=== PATIENT | male | born 1995 | race Caucasian/White ===

== ENCOUNTER 2017-03-06 13:10 | Emergency (ER) | payer OTHER ==
[2017-03-06 13:22] VITALS: BP 139/87; PULSE 64; TEMP 97.7; BMI 18.2
--- NOTE | 2017-03-06 13:58 | PDOC ---
History of Present Illness - History of Present Illness Initial Comments: 03/06/17 13:51 21 yo M with no significant pmh who presents with acute back pain. Patient reports new onset upper thoracic back pain following hyperflexion while leaning over to pick something off floor monday evening (03/05). He now reports intermittent dull achy back thoracic back pain aggravated with rotational movements and leaning over. Denies OTC analgesia. No other asx. complaints. Denies trauma. Denies numbness/tingling of exts., weakness, LOC, urinary or bowel complaints, N/V, fevers/chills. Denies OTC analgesia. No h/o back trauma. <Kofi Lo - Last Filed: 03/06/17 14:02> <Claudia Ahumada - Last Filed: 03/06/17 14:37> - General Chief Complaint: Pain Stated Complaint: BACK PAIN Time Seen by Provider: 03/06/17 13:26 Past History - Past Medical History COPD: No Other medical history: PT DENEIS - Surgical History Appendectomy: Yes - Immunization History Immunization Up to Date: Yes - Suicide/Smoking/Psychosocial Hx Smoking History: Never smoked Have you smoked in the past 12 months: No Hx Alcohol Use: Yes (OCCASIONAL) Drug/Substance Use Hx: No Substance Use Type: None <Kofi Lo - Last Filed: 03/06/17 14:02> <Claudia Ahumada - Last Filed: 03/06/17 14:37> - Past Medical History Allergies/Adverse Reactions: Allergies Allergy/AdvReac Type Severity Reaction Status Date / Time piperacillin sodium Allergy Severe Difficulty Verified 03/06/17 13:18 [From Zosyn] Breathing tazobactam sodium Allergy Severe Difficulty Verified 03/06/17 13:18 [From Zosyn] Breathing Home Medications: Ambulatory Orders NK [No Known Home Medication] 03/06/17 Review of Systems - Review of Systems Comments:: 03/06/17 13:58 GENERAL/CONSTITUTIONAL: No fever or chills. No weakness. HEAD, EYES, EARS, NOSE AND THROAT: No change in vision. No ear pain or discharge. No sore throat.- CARDIOVASCULAR: No chest pain or shortness of breath RESPIRATORY: No cough, wheezing, or hemoptysis. GASTROINTESTINAL: No nausea, vomiting, diarrhea or constipation. GENITOURINARY: No dysuria, frequency, or change in urination. MUSCULOSKELETAL: No joint or muscle swelling or pain. No neck or back pain. SKIN: No rash NEUROLOGIC: No headache, vertigo, loss of consciousness, or change in strength/ sensation. ENDOCRINE: No increased thirst. No abnormal weight change HEMATOLOGIC/LYMPHATIC: No anemia, easy bleeding, or history of blood clots. ALLERGIC/IMMUNOLOGIC: No hives or skin allergy. <WallyKofi - Last Filed: 03/06/17 14:02> *Physical Exam - Vital Signs Last Vital Signs Temp Pulse Resp BP Pulse Ox 97.7 F 64 18 139/87 100 03/06/17 13:10 03/06/17 13:10 03/06/17 13:10 03/06/17 13:10 03/06/17 13:10 - Physical Exam Comments: 03/06/17 14:06 GENERAL: Awake, alert, and fully oriented, in no acute distress HEAD: No signs of trauma, normocephalic, atraumatic EYES: PERRLA, EOMI, sclera anicteric, conjunctiva clear ENT: hearing grossly normal, nares patent, oropharynx clear without exudates. Moist mucosa NECK: Normal ROM, supple, no lymphadenopathy, JVD, or masses LUNGS: No distress, speaks full sentences, clear to auscultation bilaterally HEART: Regular rate and rhythm, normal S1 and S2, no murmurs, rubs or gallops, peripheral pulses normal and equal bilaterally. EXTREMITIES : Normal inspection, Normal range of motion, no edema. No clubbing or cyanosis. Back: Non tender to palpation along spine and paraspinal area. No obvious bony deformity. NEUROLOGICAL: Cranial nerves II through XII grossly intact. Normal speech, normal gait, no focal sensorimotor deficits SKIN: Warm, Dry, normal turgor, no rashes or lesions noted. <WallyHarmanKofi - Last Filed: 03/06/17 14:02> - Vital Signs Last Vital Signs Temp Pulse Resp BP Pulse Ox 97.7 F 64 18 139/87 100 03/06/17 13:10 03/06/17 13:10 03/06/17 13:10 03/06/17 13:10 03/06/17 13:10 <Claudia Ahumada - Last Filed: 03/06/17 14:37> Medical Decision Making - Medical Decision Making 03/06/17 14:02 21 yo M with no significant pmh who presents with new onset upper thoracic back pain following hyperflexion while leaning over to pick something off floor Monday evening ( 03/05/17) . He now reports intermittent dull achy back thoracic back pain aggravated with rotational movements and leaning over. No other asx. complaints. Denies trauma. Denies numbness/tingling of exts., weakness, LOC, urinary or bowel complaints, N/V, fevers/chills. No h/o back trauma. Physical exam benign. Pain most likely 2/2 back/thoracic sprain/strain. No evidence of lower back herniation or cauda equina. ED Course: Patient assessed and stable at bedside. Safe for D/c with return precautions and advised to follow up with PCP. <Kofi Lo - Last Filed: 03/06/17 14:02> *DC/Admit/Observation/Transfer - Discharge Dispostion Admit: No - Attestations Physician Attestion: 03/06/17 14:00 I attest to the information provided in this note. <Kofi Lo - Last Filed: 03/06/17 14:02> <Claudia Ahumada - Last Filed: 03/06/17 14:37> Diagnosis at time of Disposition: Thoracic back sprain Qualifiers: Encounter type: initial encounter Qualified Code(s): S23.9XXA - Sprain of unspecified parts of thorax, initial encounter - Discharge Dispostion Disposition: HOME Condition at time of disposition: Good - Patient Instructions Printed Discharge Instructions: DI for Back Strain or Sprain Additional Instructions: Please return to the emergency department if you experience new or worsening concerns or symtpoms. Please follow up with primary care physician in one week if pain persists. Please take ibruprofen and tylenol as needed for back pain.
== END 2017-03-06 14:47 | disposition home or self-care (01) ==
LOC: FER 13:10
DX: S23.9XXA Sprain of unspecified parts of thorax, initial encounter (principal); X58.XXXA Exposure to other specified factors, initial encounter; Y93.89 Activity, other specified; Y92.9 Unspecified place or not applicable
CPT/HCPCS: 99282-25

== ENCOUNTER 2017-09-08 13:32 | Emergency (ER) | payer OTHER ==
[2017-09-08 13:37] VITALS: BP 110/76; PULSE 63; TEMP 97.9
[2017-09-08] MEDS ORDERED: ACETAMINOPHEN 500 MG TABLET (FP) PO ONE (14:22)
[2017-09-08] MEDS ORDERED: METOCLOPRAMIDE HCL INJECTION 10 MG/2 ML VIAL IM ONE (14:22)
[2017-09-08] MEDS ORDERED: ACETAMINOPHEN 500 MG TABLET (FP) ONE (14:26)
--- NOTE | 2017-09-08 14:41 | PDOC ---
History of Present Illness - General Chief Complaint: Migraine Headache Stated Complaint: migraine Time Seen by Provider: 09/08/17 13:38 - History of Present Illness Initial Comments: 09/08/17 14:35 "The patient is a 22M, with PMHx significant for migraines, who presents with headache. Patient states he had a headache yesterday morning after waking up. He describes his headache as frontal, gradual onset, better after sleep. This is consistent with his typical migraine headaches. He also reports associated nausea which he usually experiences with his migraines and states he vomited once. Today he states that he began experiencing another migraine while driving. He took an excedrin which helped significantly. He currently rate his pain 2/10. However, he decided to come to the ER because he was concerned that his migraines were becoming more frequent. He typically gets them once a month. He denies fever or neck pain. Denies thunderclap. Denies worst headache of life. Social Hx: Occasional EtOH. Denies tobacco or illicit drug use. " Past History - Past Medical History Allergies/Adverse Reactions: Allergies Allergy/AdvReac Type Severity Reaction Status Date / Time piperacillin sodium Allergy Severe Difficulty Verified 09/08/17 13:34 [From Zosyn] Breathing tazobactam sodium Allergy Severe Difficulty Verified 09/08/17 13:34 [From Zosyn] Breathing Home Medications: Ambulatory Orders NK [No Known Home Medication] 03/06/17 COPD: No - Surgical History Appendectomy: Yes - Immunization History Immunization Up to Date: Yes - Suicide/Smoking/Psychosocial Hx Smoking History: Never smoked Have you smoked in the past 12 months: No Hx Alcohol Use: Yes Drug/Substance Use Hx: No Substance Use Type: Alcohol Review of Systems - Review of Systems Comments:: 09/08/17 14:37 "GENERAL/CONSTITUTIONAL: No fever or chills. No weakness. HEAD, EYES, EARS, NOSE AND THROAT: No ear pain or discharge. No sore throat. CARDIOVASCULAR: No chest pain or shortness of breath. RESPIRATORY: No cough, wheezing, or hemoptysis. GASTROINTESTINAL: +nausea, no diarrhea or constipation. GENITOURINARY: No dysuria, frequency, or change in urination. MUSCULOSKELETAL: No joint or muscle swelling or pain. No neck or back pain. SKIN: No rash NEUROLOGIC: + headache, no vertigo, loss of consciousness, or change in strength /sensation. ENDOCRINE: No increased thirst. No abnormal weight change. HEMATOLOGIC/LYMPHATIC: No anemia, easy bleeding, or history of blood clots. ALLERGIC/IMMUNOLOGIC: No hives or skin allergy. " *Physical Exam - Vital Signs Last Vital Signs Temp Pulse Resp BP Pulse Ox 97.9 F 63 17 110/76 100 09/08/17 13:33 09/08/17 13:33 09/08/17 13:33 09/08/17 13:33 09/08/17 13:33 - Physical Exam Comments: 09/08/17 14:37 "GENERAL: Awake, alert, and fully oriented, in no acute distress. HEAD: No signs of trauma EYES: PERRLA, EOMI, sclera anicteric, conjunctiva clear ENT: Auricles normal inspection, hearing grossly normal, nares patent, oropharynx clear without exudates. Moist mucosa NECK: Nontender, no stepoffs, Normal ROM, supple, no lymphadenopathy, JVD, or masses LUNGS: Breath sounds equal, clear to auscultation bilaterally. No wheezes, and no crackles HEART: Regular rate and rhythm, normal S1 and S2, no murmurs, rubs or gallops ABDOMEN: Soft, nontender, normoactive bowel sounds. No guarding, no rebound. No masses EXTREMITIES: Normal range of motion, no edema. No clubbing or cyanosis. No cords, erythema, or tenderness NEUROLOGICAL: Cranial nerves II through XII intact. 5/5 strength and sensation in all extremities, Normal speech, normal gait, normal cerebellar function SKIN: Warm, Dry, normal turgor, no rashes or lesions noted. " ED Treatment Course - Medications Given in the ED: ED Medications Discontinued Medications Generic Name Dose Route Start Last Admin Trade Name Freq PRN Reason Stop Dose Admin Acetaminophen 500 mg 09/08/17 14:22 09/08/17 14:30 Tylenol - PO 09/08/17 14:23 500 mg ONCE ONE Administration Metoclopramide HCl 10 mg 09/08/17 14:22 09/08/17 14:30 Reglan Injection - IM 09/08/17 14:23 10 mg ONCE ONE Administration Medical Decision Making - Medical Decision Making 09/08/17 14:38 22 M with typical migraine headache. Pt with non-focal neuro exam, no red flags to suggest SAH/meningitis/other acute intracranial process. - Tylenol - Reglan IM - F/u neurology *DC/Admit/Observation/Transfer Diagnosis at time of Disposition: Migraine headache with aura - Discharge Dispostion Disposition: HOME Condition at time of disposition: Stable - Referrals Referrals: Clive Meehan MD [Staff Physician] - - Patient Instructions Printed Discharge Instructions: DI for Migraine Additional Instructions: You likely have migraine headaches. Follow up with a neurologist to have additional tests done to confirm this diagnosis. If your headaches continue to increase in frequency, you may need to started on a medication regimen to prevent migraines. If you experience worsening headache, vomiting, fevers, neck stiffness, or any other concerning symptoms, return to the ER immediately. Otherwise follow up with a neurologist or your primary doctor within 1 week. - Post Discharge Activity - Attestations Physician Attestion: 09/08/17 14:41 I, Dr. Keith Carpenter MD, attest that this document has been prepared under my direction and personally reviewed by me in its entirety. I further attest, that it accurately reflects all work, treatment, procedures and medical decision -making performed by me.
== END 2017-09-08 14:55 | disposition home or self-care (01) ==
LOC: FER 13:32
PROC: 3E023GC Introduction of Other Therapeutic Substance into Muscle, Percutaneous Approach (ICD-10-PCS; principal; 2017-09-08)
DX: G43.109 Migraine with aura, not intractable, without status migrainosus (principal)
CPT/HCPCS: 96372; 99281-25

== ENCOUNTER 2017-11-08 09:37 | Emergency (ER) | payer OTHER ==
[2017-11-08 09:47] VITALS: BP 102/59; PULSE 85; TEMP 98.7; BMI 19.5
--- NOTE | 2017-11-08 09:54 | PDOC ---
History of Present Illness - General Chief Complaint: Sore Throat Stated Complaint: SORETHROAT Time Seen by Provider: 11/08/17 09:53 History Source: Patient Exam Limitations: No Limitations - History of Present Illness Initial Comments: 11/08/17 09:54 Pasquale is a 22 yo M with a h/o Migraines who presents to the ER with a concern for Strep throat He has had throat pain for the past week Yesterday he noticed that his throat pain worsened HE believes that he had a fever last night No drooling No voice changes Pt is able to tolerate po/secretions No ill contacts at school Pt denies oral sex/STD Pt denies h/o Spink or contact with mono No arthropod bites No recent travel PMH: Migraine PSH: Appendectomy Meds: Denies ALL: Zosyn Social: Social Etoh, Marijuanna occasionally, Tobacco occasionally FH: Denies GENERAL/CONSTITUTIONAL: Yes: subjective fever No: chills, weakness, loss of appetite. HEAD, EYES, EARS, NOSE AND THROAT: Yes: throat pain No: change in vision, ear pain, discharge CARDIOVASCULAR: No: chest pain, lightheadedness, palpitations, syncope RESPIRATORY: No: cough, shortness of breath, wheezing GASTROINTESTINAL: No: nausea, vomiting, diarrhea, abdominal pain GENITOURINARY: No: dysuria, hematuria, frequency, urgency MUSCULOSKELETAL: No: back pain, neck pain, joint pain SKIN: No: rash NEUROLOGIC: Yes: headache PE: GENERAL: The patient is in no acute distress. HEAD: Normal . EYES: PERRLA, EOMI, sclera anicteric, conjunctiva clear. ENT: Ears normal, nares patent, oropharynx clear without exudates. Moist mucous membranes. Uvula midline, no tonsillar fullness Pharyngeal erythema, no exudate NECK: Normal range of motion, supple (+) scattered lymph nodes, no nuchal rigidity LUNGS: Breath sounds equal, clear to auscultation bilaterally. No wheezes, and no crackles. HEART:Regular rate and rhythm, normal S1 and S2 without murmur, rub or gallop. ABDOMEN: Soft, nontender, normoactive bowel sounds. EXTREMITIES: Normal range of motion NEUROLOGICAL: Cranial nerves II through XII grossly intact. Normal speech. No focal neurological deficits. MUSCULOSKELETAL: Back non-tender to palpation, no CVA tenderness SKIN: Warm, Dry, normal turgor, no rashes or lesions noted. 11/08/17 10:12 Past History - Past Medical History Allergies/Adverse Reactions: Allergies Allergy/AdvReac Type Severity Reaction Status Date / Time piperacillin sodium Allergy Severe Difficulty Verified 11/08/17 09:37 [From Zosyn] Breathing tazobactam sodium Allergy Severe Difficulty Verified 09/08/17 13:34 [From Zosyn] Breathing Home Medications: Ambulatory Orders Azithromycin [Zithromax 250mg Tablets -] 250 mg PO UTDICT #6 tab 11/08/17 COPD: No - Surgical History Appendectomy: Yes - Immunization History Immunization Up to Date: Yes - Suicide/Smoking/Psychosocial Hx Smoking History: Current some day smoker Have you smoked in the past 12 months: Yes Number of Cigarettes Smoked Daily: 1 Information on smoking cessation initiated: Yes 'Breaking Loose' booklet given: 11/08/17 Hx Alcohol Use: Yes (SOCIAL) Drug/Substance Use Hx: Yes (MARIJUANA) Substance Use Type: Alcohol, Marijuana *Physical Exam - Vital Signs Last Vital Signs Temp Pulse Resp BP Pulse Ox 98.7 F 85 20 102/59 98 11/08/17 09:37 11/08/17 09:37 11/08/17 09:37 11/08/17 09:37 11/08/17 09:37 Medical Decision Making - Medical Decision Making 11/08/17 10:16 22 yo M presenting to the ER with a complaint of throat pain DD: Viral vs bacterial pharyngitis, mono possible though less likely given no lymphadenopathy Will give Motrin Decardon Rapid strep Consider abx even if strep test negative Azithromycin Follow up culture Discharge to home *DC/Admit/Observation/Transfer Diagnosis at time of Disposition: Pharyngitis Qualifiers: Pharyngitis/tonsillitis etiology: unspecified etiology Qualified Code(s): J02.9 - Acute pharyngitis, unspecified - Discharge Dispostion Disposition: HOME Condition at time of disposition: Stable Decision to Admit order: No - Prescriptions Prescriptions: Azithromycin [Zithromax 250mg Tablets -] 250 mg PO UTDICT #6 tab - Referrals - Patient Instructions Printed Discharge Instructions: DI for Pharyngitis/Tonsillopharyngitis -- Adult Additional Instructions: Pasquale Please read through your discharge papers. PLEASE NOTE we suggest at a minimum that you review all symptoms and final test results with a physician that will provide ongoing care for you. THANK YOU for allowing us to help begin your care of this latest issue. Keep in mind the treatment performed in the Emergency Department is NOT complete until you have followed up with your Doctor. Please take Motrin 600mg every 8 hours with food or milk for pain/fever We want you to return to the ED as soon as possible if symptoms get worse ( increased pain, inability to swallow, drooling, voice changes, persistent high fevers) or if you have any problems whatsoever. We advised you to take the following medication(s) as directed: over the counter tylenol - Post Discharge Activity
[2017-11-08] MEDS ORDERED: IBUPROFEN 600 MG TABLET (FP) PO ONE ×2 (10:01→10:03)
[2017-11-08] MEDS ORDERED: DEXAMETHASONE LIQUID 0.5 MG/5 ML 240 ML BULK BOTTLE PO ONE (10:17)
[2017-11-08] MEDS ORDERED: DEXAMETHASONE 4 MG TABLET (FP) PO ONE (10:34)
[2017-11-08] MEDS ORDERED: DEXAMETHASONE 4 MG TABLET (FP) ONE (10:36)
== END 2017-11-08 10:47 | disposition home or self-care (01) ==
LOC: FER 09:37
DX: J02.9 Acute pharyngitis, unspecified (principal)
CPT/HCPCS: 87070; 87430; 99281-25